=== PATIENT | female | born 1940 | race Caucasian/White ===

== ENCOUNTER 2018-10-22 13:46 | Observation (INO) | payer MEDICARE ==
[~2018-10-22] VITALS: Ht 147.3 cm; Wt 46.7 kg
[2018-10-22] MEDS ORDERED: ASPIRIN 81 MG CHEW TAB PO ONE (14:00)
[2018-10-22 14:43] LABS: BASOPHILS % 0.2 % (0.0-1.0); EOSINOPHILS % 0.3 % (0.0-6.0); HEMATOCRIT 38.2 % (34.2-44.1); HEMOGLOBIN 13.6 g/dL (12.0-16.0); LYMPHOCYTES # (AUTO) 2.5 (1.0-3.2); LYMPHOCYTES % 25.5 % (18.0-39.1); MEAN CORPUSCULAR HEMOGLOBIN 30.5 pg (28-32); MEAN CORPUSCULAR HGB CONC 35.6 g/dL (31-35); MEAN CORPUSCULAR VOLUME 85.7 fL (81-99); MONOCYTES # (AUTO) 0.6 (0.2-0.8); MONOCYTES % 5.8 % (4.4-11.3); NEUTROPHILS # (AUTO) 6.6 (2.1-6.9); NEUTROPHILS % 67.5 % (38.7-80.0); PLATELET COUNT 295 x10e3/uL (140-360); RED BLOOD COUNT 4.46 x10e6/uL (3.6-5.1); RED CELL DISTRIBUTION WIDTH 12.4 % (11.7-14.4)
[2018-10-22 14:51] LABS: INR 0.95; PROTHROMBIN TIME 13.2 seconds (11.9-14.5)
[2018-10-22 15:00] LABS: CLARITY,URINE SL CLOUDY (CLEAR); COLOR,URINE YELLOW (YELLOW); KETONES,URINE 1+ (NEGATIVE); LEUKOCYTE ESTERASE ,URINE TRACE (NEGATIVE); NITRITE,URINE NEGATIVE (NEGATIVE); PROTEIN,URINE DIPSTICK 1+ (NEGATIVE); URINE UROBILINOGEN 0.2 mg/dL (0.2 - 1)
[2018-10-22 15:01] LABS: BILIRUBIN,URINE 1+ (NEGATIVE)
[2018-10-22 15:02] LABS: ALANINE AMINOTRANSFERASE 83 IU/L (0-55); ALBUMIN 3.3 g/dL (3.5-5.0); ALBUMIN/GLOBULIN RATIO 0.9 (0.8-2.0); ALKALINE PHOSPHATASE 91 IU/L (40-150); ANION GAP 14.4 mmol/L (8-16); BLOOD UREA NITROGEN 24 mg/dL (7-26); BUN/CREATININE RATIO 28 (6-25); CALCIUM 9.9 mg/dL (8.4-10.2); CARBON DIOXIDE 26 mmol/L (22-29); CHLORIDE 98 mmol/L (98-107); CREATINE KINASE 23 IU/L (29-168); CREATININE, SERUM 0.87 mg/dL (0.57-1.11); EST GLOMERULAR FILTRATION RATE > 60 ML/MIN (60-); GLUCOSE 185 mg/dL (74-118); MAGNESIUM 1.4 MG/DL (1.3-2.1); POTASSIUM 3.4 mmol/L (3.5-5.1); SODIUM 135 mmol/L (136-145)
--- NOTE | 2018-10-22 15:14 | Diagnostic Imaging Report ---
Examination: Single AP view of the chest. COMPARISON: None. INDICATION: Chest pain DISCUSSION: Lines/tubes: None. Lungs: The lungs are well inflated and clear. No pneumonia or pulmonary edema. Pleura: No pleural effusion or pneumothorax. Heart and mediastinum: The heart and the mediastinum are unremarkable. Bones and soft tissues: No acute bony abnormalities. IMPRESSION: 1. No acute cardiopulmonary abnormalities. Signed by: Dr. Howard Johnson M.D. on 10/22/2018 3:11 PM
[2018-10-22 15:23] LABS: BACTERIA,URINE FEW /HPF; EPITHELIAL CELLS,URINE MODERATE /LPF
[2018-10-22] MEDS ORDERED: ONDANSETRON HCL INJ 2MG/ML 2ML 2 MG/ML VIAL IV PRN (17:45)
[2018-10-22] MEDS ORDERED: NITROGLYCERIN 0.4 MG SUBL SL PRN (17:45)
[2018-10-22] MEDS ORDERED: ENOXAPARIN SOD INJ 60 MG/0.6 ML SYR SC NR (17:45)
--- OUTSIDE RECORDS SUMMARY | 2018-10-22 17:49 | XMS REPORT ---
Author Author [facility] Address Unknown Phone Unavailable Care Team Providers Care Unit Tender Name Role Phone Syl MCCURDY Unavailable Unavailable Peyman SORTO Unavailable Unavailable KATHRYN BRUMFIELD Unavailable Unavailable Problems This patient has no known problems. Allergies, Adverse Reactions, Alerts This patient has no known allergies or adverse reactions. Medications This patient has no known medications. Results Test Description Test Time Test Comments Text Results Atomic Results Result Comments CHEST SINGLE (PORTABLE) 2018-10-22 15:10:00 [facility] [address] [place] [address] Patient Name: DELMER ALAS MR #: [id number] : 1940 Age/Sex: 78/F Req #: [id number] Adm Physician: Ordered by: IFEANYI SALEH FUNDRAISER Report #: [id number] Location: ER Room/Bed: Procedure: [id number] DX/CHEST SINGLE (PORTABLE) Exam Date: 10/22/18 Exam Time: 1430 REPORT STATUS: Signed Examination: Single AP view of the chest. C OMPARISON: None. INDICATION: Chest pain DISCUSSION: Lines/tubes: None. Lungs: The lungs are well inflated and clear. No pneumonia or pulmonary edema. Pleura: No pleural effusion or pneumothorax. Heart and mediastinum: The heart and the mediastinum are unremarkable. Bones and soft tissues: No acute bony abnormalities. IMPRESSION: 1. No acute cardiopulmonary abnormalities. Signed by: Dr. Debbie Concepcion M.D. on 10/22/2018 3:11 PM Dictated By: DEBBIE CONCEPCION MD 10 Transcribed By: SARITA on 10/22/181510 COPY TO: IFEANYI SALEH NP CT HIP LEFT WO [place] [address] Patient Name: PRIETO DOWELL MR #: [id number] : 1940 Age/Sex: 77/F Req #: [id number] Adm Physician: Ordered by: ADELIA SORTO MD Report #: [id number] Location: ER Room/Bed: Procedure: [id number] CT/CT HIP LEFT WO Exam Date: 10/25/17 Exam Time: 2243 REPORT STATUS: Signed TECHNIQUE: Computed tomography imaging of the LEFT HIP was performed WITHOUT injected contrast. HISTORY: Pain, evaluate for occult fracture COMPARISON: None available. FINDINGS: No displaced fracture. Mi ld left hip degenerative arthrosis with calcium pyrophosphate deposition within the left hip and pubic symphysis. Calcification within the left hamstring origin. Vascular calcifications. The bladder is distended. IMPRESSION: No displaced left hip fracture. Calcium pyrophosphate deposition within the left hip Signed by: Dr. Debbie Concepcion M.D. on 10/26/2017 7:07 AM Dictated By: DEBBIE CONCEPCION MD 6 Transcribed By: SARITA on 10/26/17706 COPY TO: ADELIA SORTO MD HIP LEFT 2-3 VW (+/- PELVIS) [facility] [place] [address] Patient Name: PRIETO DOWELL MR #: [id number] : 1940 Age/Sex: 77/F Req #: [id number] Adm Physician: Ordered by: ADELIA SORTO MD Report #: [id number] Location: ER Room/Bed: Procedure: [id number] DX/HIP LEFT 2-3 VW (+/- PELVIS) Exam Date: Exam Time: REPORT STATUS: Signed HIP LEFT 2-3 VW (+/- PELVIS) HISTORY: Hip pain. COMPARISON: MRI of the pelvis on 08/13/2017 FINDINGS: Bones: No displaced fracture. Postsurgical repair of intertrochanteric fracture with intramedullary flor and interlocking screw on the right hip Osseous alignment is within normal limits. Joints: Mild degenerative change of the symphysis pubis and left hip joint. Degenerative changes of the lower lumbar spine. Soft tissues: The soft tissues appear unremarkable. IMPRESSION: No acute osseous abnormality. Signed by: Dr. Yan Alarcon M.D. on 10/25/2017 9:37 PM Dictated By: YAN CALIX MD 36 Transcribed By: SARITA on 10/25/172136 COPY TO: ADELIA SORTO MD [facility] (PORTABLE) [place] [address] Patient Name: PRIETO DOWELL MR #: [id number] : 1940 Age/Sex: 77/F Req #: [id number] Adm Physician: KATHRYN BRUMFIELD Ordered by: KATHRYN BRUMFIELD MD, MD Report #: [id number] Location: MED/SURG Room/Bed: 106-1 Procedure: [id number] DX/CHEST SINGLE (PORTABLE) Exam Date: 08/21/17 Exam Time: 1130 REPORT STATUS: Signed PROCEDURE: A single AP view of the chest. COMPARISON: [facility], DX, CHEST SINGLE (PORTABLE), 08/13/2017, 20:22. INDICATIONS: WHEEZING FINDINGS: Lines/tubes: None. Lungs: Lungs are well-inflated. Mild bibasilar atelectatic changes. No definite consolidation. Mild perihilar interstitial opacities and peribronchial cuffing Pleura: There is no pleural effusion or pneumothorax. Heart and mediastinum: Cardiac silhouette is unremarkable. Mild central pulmonary venous congestion Bones: No acute bony abnormality. IMPRESSION: 1. mild perihilar interstitial opacities and peribronchial cuffing and central vascular venous congestion. This may reflect reactive airway disease versus viral infection. No definite consolidation. Iván Ruiz M.D. Dictated by: Iván Ruiz M.D. on 08/21/2017 at 12:00 Electronically approved by: Iván Ruiz M.D. on 08/21/2017 at 12:00 Dictated By: IVÁN RUIZ MD 1200 Transcribed By: SHAWANDA on 08/21/17 1200 COPY TO: KATHRYN ENNIS PELVIS AP 1-2 VIEWS [place] [address] Patient Name: PRIETO DOWELL MR #: [id number] : 1940 Age/Sex: 77/F Req #: [id number] Adm Physician: KATHRYN BRUMFIELD Ordered by: TANVI BARBOSA MD Report #: [id number] Location: MED/SURG Room/Bed: 106-1 Procedure: [id number] DX/PELVIS AP 1-2 VIEWS Exam Date: 08/18/17 Exam Time: 1215 REPORT STATUS: Signed HIP RIGHT ONE VW (+/- PELVIS), PELVIS AP 1-2 VIEWS HISTORY: Closed, postop COMPARISON: Hip and pelvic MRI 08/13/2017 FINDINGS: See impression. IMPRESSION: Postsurgical changes related to placement of a right femoral intramedullary flor without radiographically apparent complications. Signed by: DR. Lon Katz MD on 08/18/2017 12:56 PM Dictated By: LON KATZ MD 1256 Transcribed By: SARITA on 08/18/17 1256 COPY TO: TANVI BARBOSA MD HIP RIGHT ONE VW (+/- PELVIS) [place] [address] Patient Name: PRIETO DOWELL MR #: [id number] : 1940 Age/Sex: 77/F Req #: [id number] Adm Physician: KATHRYN BRUMFIELD Ordered by: TANVI BARBOSA MD Report #: [id number] Location: MED/SURG Room/Bed: 106 Procedure: DX/HIP RIGHT ONE VW (+/- PELVIS) Exam Date: Exam Time: REPORT STATUS: Signed HIP RIGHT ONE VW (+/- PELVIS), PELVIS AP 1-2 VIEWS HISTORY: Closed, postop COMPARISON: Hip and pelvic MRI 08/13/2017 FINDINGS: See impression. IMPRESSION: Postsurgical changes related to placement of a right femoral intramedullary flor without radiographically apparent complications. Signed by: DR. Lon Katz MD on 08/18/2017 12:56 PM Dictated By: LON KATZ MD 1256 Transcribed By: SARITA on 08/18/17 1256 COPY TO: TANVI BARBOSA MD CHEST SINGLE (PORTABLE) [place] [address] Patient Name: PRIETO DOWELL MR #: [id number] : 1940 Age/Sex: 77/F Req #: [id number] Adm Physician: Ordered by: TIFFANIE BREWER NP Report #: [id number] Location: ER Room/Bed: Procedure: [id number] DX/CHEST SINGLE (PORTABLE) Exam Date: Exam Time: REPORT STATUS: Signed Examination: Single AP view of the chest. COMPARISON: None. INDICATION: Preoperative evaluation DISCUSSION: Lines/tubes: None. Lungs: The lungs are well inflated and clear. No pneumonia or pulmonary edema. Pleura: There is no pleural effusion or pneumothorax. Heart and mediastinum: The heart and the mediastinum are unremarkable. Bones and soft tissues: No acute bony abnormalities. IMPRESSION: 1. No acute cardiopulmonary abnormalities. Signed by: Dr. Debbie Concepcion M.D. on 08/13/2017 8:43 PM Dictated By: DEBBIE CONCEPCION MD 42 Transcribed By: SARITA on 08/13/172042 COPY TO: TIFFANIE BREWER FUNDRAISER MRI PELVIS WO [place] [address] Patient Name: PRIETO DOWELL MR #: [id number] : 1940 Age/Sex: 77/F Req #: [id number] Adm Physician: Ordered by: TIFFANIE BREWER NP Report #: [id number] Location: ER Room/Bed: Procedure: [id number] MRI/MRI PELVIS WO Exam Date: Exam Time: REPORT STATUS: Signed TECHNIQUE: Magnetic resonance imaging of the pelvis and right hip was performed WITHOUT injected contrast using standard departmental protocols. HISTORY: Right hip pain COMPARISON: None. FINDINGS: Bone and bone marrow: Nondisplaced fracture of the intertrochanteric region of the right femur. No other fracture. Articular cartilage: Partial thickness cartilage loss. Soft tissues: Iliopsoas tendons intact. Mild proximal branching origin tendinosis. Gluteal tendon insertions are intact. Soft tissue edema adjacent to the right proximal femur. IMPRESSION: Nondisplaced right intertrochanteric femur fracture. Signed by: Dr. Debbie Concepcion M.D. on 08/13/2017 6:33 PM Dictated By: DEBBIE CONCEPCION MD 32 Transcribed By: SARITA on 08/13/171832 COPY TO: TIFFANIE BREWER NP MRI HIP RIGHT WO [facility] [address] [place] [address] Patient Name: PRIETO DOWELL MR #: [id number] : 1940 Age/Sex: 77/F Req #: [id number] Adm Physician: Ordered by: TIFFANIE BREWER NP Report #: [id number] Location: ER Room/Bed: Procedure: [id number] MRI/MRI HIP RIGHT WO Exam Date: Exam Time: REPORT STATUS: Signed TECHNIQUE: Magnetic resonance imaging of the pelvis and right hip was performed WITHOUT injected contrast using standard departmental protocols. HISTORY: Right hip pain COMPARISON: None. FINDINGS: Bone and bone marrow: Nondisplaced fracture of the intertrochanteric region of the right femur. No other fracture. Articular cartilage: Partial thickness cartilage loss. Soft tissues: Iliopsoas tendons intact. Mild proximal branching origin tendinosis. Gluteal tendon insertions are intact. Soft tissue edema adjacent to the right proximal femur. IMPRESSION: Nondisplaced right intertrochanteric femur fracture. Signed by: Dr. Debbie Concepcion M.D. on 08/13/2017 6:33 PM Dictated By: DEBBIE CONCEPCION MD 32 Transcribed By: SARITA on 08/13/171832 COPY TO: TIFFANIE BREWER NP CT BRAIN WO [facility] [address] [place] [address] Patient Name: PRIETO DOWELL #: [id number] : 1940 Age/Sex: 77/F Req #: [id number] Adm Physician: Ordered by: TIFFANIE BREWER NP Report #: [id number] Location: Room/Bed: Procedure: [id number] CT/CT BRAIN WO Exam Date: Exam Time: REPORT STATUS: Signed EXAMINATION: Head CT HISTORY: Status post fall, trauma, pain COMPARISON: Head CT from 03/19/2014 TECHNIQUE: Multidetector axial images were obtained without contrast from the foramen magnum to the vertex . The images were reconstructed using brain and bone algorithms. Thin section brain images were reformatted into coronal and sagittal planes. Motion/streaking artifact limits the evaluation of the skull base and posterior cranial fossa. FINDINGS: Parenchyma: 1. Persistent mild chronic microvascular ischemic changes. Otherwise no abnormal density in the brain parenchyma. 2. No mass or hemorrhage. No CT evidence of acute territorial vascular insult. Extra-axial spaces:No abnormal density. No extra-axial fluid collections Brain volume: Normal for age. Ventricles: No hydroc ephalus or displacement. Arteries: No density suggestive of thrombus. Dural sinuses: No abnormal density. Extra-axial spaces: No abnormal density. Foramen magnum: No mass, Chiari malformation, or basilar invagination. Sella: No obvious mass. Paranasal/mastoid sinuses: Imaged portions unremarkable. Skull/Scalp: No lytic or blastic lesions. No fractures. IMPRESSION: 1. No acute post traumatic intracranial abnormalities, particularly no hemorrhage. 2. Unchanged mild chronic microvascular ischemic changes. Signed by: Dr. Jessy Moncada M.D. on 08/13/2017 3:20 PM Dictated By: JESSY MONCADA MD 1520 Transcribed By: SARITA on 08/13/17 1520 COPY TO: TIFFANIE BREWER FUNDRAISER HIP RIGHT 2-3 VW (+/- PELVIS) [place] [address] Patient Name: PRIETO DOWELL MR #: [id number] : 1940 Age/Sex: 77/F Req #: [id number] Adm Physician: Ordered by: TIFFANIE BREWER FUNDRAISER Report #: [id number] Location: ER Room/Bed: Procedure: [id number] DX/HIP RIGHT 2-3 VW (+/- PELVIS) Exam Date: Exam Time: REPORT STATUS: Signed PROCEDURE: HIP RIGHT 2-3 VW (+/- PELVIS) COMPARISON: To priors. INDICATIONS: FALL, RIGHT HIP AND LEG PAIN FINDINGS: BONES: No evidence of fracture or dislocation. Mild degenerative changes are present. The adjacent pubic rami appear intact. There is no diastases the pubic symphysis and sacroiliac joints. The left hip is intact with mild degenerative changes. There are moderate changes of the lower lumbar spine superimposed on dextroscoliosis. SOFT TISSUES: There are calcifications in the soft tissues and in the vascular structures. OTHER: Negative. CONCLUSION: No evidence of fracture or dislocation by x- ray. If there is persistent clinical concern, limited CT of the bony pelvis performed for further characterization. Dictated by: Dillon Deleon M.D. on 08/13/2017 at 16:27 Electronically approved by: Dillon Deleon M.D. on 08/13/2017 at 16:27 Dictated By: DILLON DELEON MD 26 Transcribed By: SHAWANDA on 08/13/171626 COPY TO: TIFFANIE BREWER NP FEMUR TWO VIEW MINIMUM RIGHT [place] [address] Patient Name: PRIETO DOWELL MR #: [id number] : 1940 Age/Sex: 77/F Req #: [id number] Adm Physician: Ordered by: TIFFANIE BREWER NP Report #: [id number] Location: ER Room/Bed: Procedure: [id number] DX/FEMUR TWO VIEW MINIMUM RIGHT Exam Date: Exam Time: REPORT STATUS: Signed PROCEDURE: FEMUR TWO VIEW MINIMUM RIGHT COMPARISON: Hip x- rays performed at the same time INDICATIONS: FALL, RIGHT HIP AND LEG PAIN FINDINGS: There are mild degenerative changes of the right hip. The femur is intact and normally mineralized without focal osseous lesions. A traction enthesophyte arises from the greater trochanter. There are degenerative changes of the knee. Visualized bones of the pelvis are intact. There calcifications in the soft tissues and in the vascular structures. CONCLUSION: No evidence of fracture or dislocation. Degenerative changes as described above. Dictated by: Dillon Deleon M.D. on 08/13/2017 at 16:29 Electronically approved by: Dillon Deleon M.D. on 08/13/2017 at 16:29 Dictated By: GLENIS DELEON MD 28 Transcribed By: SHAWANDA on 08/13/171628 COPY TO: TIFFANIE BREWER NP
--- NOTE | 2018-10-22 19:02 | NUR ---
Got report from previous nurse. Call light within reach. patient in bed.
[2018-10-22 20:00] VITALS: BP 153/77
--- NOTE | 2018-10-22 20:00 | NUR ---
called and talked to Dr. Booker about patient being in room 179. Dr. Booker ordered an ECHO to be done tomorrow.
[2018-10-22 20:37] VITALS: BP 153/77
[2018-10-23 00:10] VITALS: BP 140/67
[2018-10-23 01:02] LABS: CREATINE KINASE 21 IU/L (29-168)
[2018-10-23 04:00] VITALS: BP 133/80
[2018-10-23 06:08] LABS: CHOL/HDL RATIO 2.7 (3.0-3.6)
[2018-10-23 07:03] LABS: CREATINE KINASE MB 1.4 ng/mL (0-5.0)
--- NOTE | 2018-10-23 07:13 | NUR ---
Walking rounds done. Patient is awake and alertx3 in NAD. She currently denies any CP or SOB. Tele #15, ST@102. POC discussed. Patient instructed to call for assistance and verbalized understanding. Call plummer within reach.
--- NOTE | 2018-10-23 07:15 | NUR ---
Gave report to oncoming nurse. Call light within reach. Patient in bed.
[2018-10-23 08:00] VITALS: BP 133/74
[2018-10-23] MEDS: INSULIN LISPRO 100 UNIT/1 ML 3ML VIAL SQ SCH ×4 (09:00→22:10)
[2018-10-23] MEDS ORDERED: DEXTROSE 50% SYRINGE 50 ML IV PRN (09:00)
[2018-10-23] MEDS ORDERED: POTASSIUM CHLORIDE 20 MEQ TAB CR PO NR (09:00)
[2018-10-23] MEDS: ASPIRIN 325 MG TAB EC PO SCH (09:04)
[2018-10-23] MEDS: METOPROLOL TARTRATE 25 MG TAB PO SCH ×2 (09:04→16:56)
[2018-10-23] MEDS ORDERED: REGADENOSON 0.4 MG/5 ML SYR IV ONE (11:12)
[2018-10-23] MEDS ORDERED: ONDANSETRON HCL 4 MG ORAL DISINTEGRATING TAB PO PRN (11:45)
[2018-10-23 12:15] VITALS: BP 105/66
--- NOTE | 2018-10-23 12:55 | Consultation ---
DATE OF CONSULTATION: 10/22/2018 REASON FOR CONSULTATION: Chest pain. CONSULTING PHYSICIAN: Dr. Diane Ferguson. HISTORY OF PRESENT ILLNESS: This is a pleasant 78-year-old female, who presented with chest pain. According to the patient, for the last one week, she started having left-sided chest pain that felt like tight pressure on a scale of 7/10 pain that radiated down to her stomach. She stated that the pain has been going on off and on that she decided to come into the emergency room for further evaluation. She had a history of CAD with six cardiac stents in the past and she had not had any stress test recently. She also stated last week she was getting out of the doctor's office, she tripped and she fell sustaining a bruise to her face and jaw. She denied any palpitation, any shortness of breath, any diaphoresis, any headache, nausea, or vomiting. Troponin x3 was negative. EKG showed normal sinus rhythm with no ST abnormalities. BNP 64.9. PAST MEDICAL HISTORY: hypertension, diabetes, hyperlipidemia, arthritis, hypothyroidism, CAD with stents. PAST SURGICAL HISTORY: Right hip surgery, right foot surgery, and cardiac catheterization with PCI. FAMILY HISTORY: Noncontributory. SOCIAL HISTORY: No smoking. No drinking. She lives at home with the daughter. MEDICATIONS: See chart. ALLERGIES: SHE IS NOT ALLERGIC TO ANY MEDICATION. REVIEW OF SYSTEMS: Negative except those mentioned above. She is positive for chest pain. PHYSICAL EXAMINATION: VITAL SIGNS: Temperature 97.5, heart rate 94, blood pressure 133/80, respirations 18, oxygen saturation 99% on 2 L nasal cannula. GENERAL: She is awake, alert, and oriented x3. HEENT: Mucous membranes are moist. NECK: Supple. LUNGS: Bilateral clear to auscultation. CARDIOVASCULAR: S1, S2 present. ABDOMEN: Soft. NEUROLOGICAL: Intact. EXTREMITIES: With no edema. LABS: Sodium 135, potassium 3.4, chloride 98, CO2 of 26, BUN 24, creatinine 0.87, glucose 185. White blood cell 9.71, hemoglobin 13.6, hematocrit 38.2, platelets 295. PT 13.2, PTT 20.0, INR 0.95. IMPRESSION: 1. Chest pain. 2. Coronary artery disease with stents. 3. Hypertension. 4. Diabetes. 5. Hyperlipidemia. 6. Status post fall last week. PLAN: 1. Troponin x3 was negative. 2. We will get an echocardiogram to assess the LV and the valve function. 3. We will check lipid panel and TSH. 4. Potassium is low and has been replaced. 5. Due to history of CAD and multiple stents in the past and no recent cardiac stress test, we will go ahead and set her up for Lexiscan Myoview to rule out any occlusion. Risk and benefit explained to her and she agreed. Further cardiac workup pending clinical course. Thank you for this consultation. Dictated by Milind Smith, PREVENTIVE MEDICINE OFFICER MD KIM Medina/MODPeyman /[id number]
--- NOTE | 2018-10-23 13:10 | NUR ---
Patient returned from stress test. Tele replaced. Call plummer within reach.
[2018-10-23 13:55] LABS: CREATINE KINASE MB 1.9 ng/mL (0-5.0)
[2018-10-23] MEDS ORDERED: METOPROLOL TART25 MG PO (14:43)
[2018-10-23] MEDS ORDERED: LEVOTHYROXINE100 MC1 PO (14:43)
[2018-10-23] MEDS ORDERED: KLONOPIN0.5 MG PO (14:43)
[2018-10-23] MEDS ORDERED: TEMAZEPAM15 MG PO (14:43)
[2018-10-23] MEDS ORDERED: PLAVIX75 MG PO (14:43)
[2018-10-23] MEDS ORDERED: OMEPRAZOLE20 MG PO (14:43)
[2018-10-23] MEDS ORDERED: LIPITOR20 MG PO (14:43)
[2018-10-23] MEDS ORDERED: NORCO 5-325 TA1 EACH PO (14:43)
[2018-10-23 16:00] VITALS: BP 112/68
[2018-10-23] MEDS ORDERED: HYDROCODONE/APAP 5MG-325MG TAB PO PRN (16:15)
--- NOTE | 2018-10-23 17:52 | NUR ---
Dr. Colunga making rounds.
--- NOTE | 2018-10-23 19:02 | NUR ---
Got report from previous nurse. Call light within reach. patient asleep in bed.
[2018-10-23 20:20] VITALS: BP 112/60
[2018-10-23] MEDS ORDERED: ATORVASTATIN 40 MG TAB PO SCH (21:00)
[2018-10-23] MEDS ORDERED: TEMAZEPAM 15 MG CAP PO SCH (21:00)
[2018-10-23] MEDS ORDERED: ATORVASTATIN 20 MG TAB PO SCH (21:00)
[2018-10-24 00:30] VITALS: BP 127/79
--- NOTE | 2018-10-24 01:13 | History and Physical ---
CHIEF COMPLAINT: Chest pain. HISTORY OF PRESENT ILLNESS: A 78-year-old female patient with history of diabetes mellitus, diabetic neuropathy, coronary artery disease, history of coronary stent in the past, esophageal stricture, status post dilatation, Rosenthal's esophagus, admitted with chest pain, left anterior chest continuous pain maximum of 8/10. The patient received emergent care with a morphine, oxygen, aspirin, and seen by talent acquisition partner. She had a stress test report pending. She also has some tenderness to the chest wall. PAST MEDICAL HISTORY: Hypertension, diabetes, hyperlipidemia, esophageal strictures, neuropathy, and GERD. PERSONAL HISTORY: No history of smoking or alcohol. MEDICATIONS: Insulin, [place] and gabapentin. PHYSICAL EXAMINATION: VITAL SIGNS: Blood pressure 118/70, pulse of 82. HEENT: Normal. NECK: No JVD. LUNGS: Bilateral normal. ABDOMEN: Soft. Bowel sounds normal. LOWER EXTREMITIES: No edema. SKIN: Normal. LABORATORY DATA: Potassium low, replaced. ASSESSMENT: Chest pain in a cardiac patient, rule out myocardial infarction and history of gastroesophageal reflux disease. PLAN: Will resume the home medications. Cardiology consultation. Followup stress report and telemetry. MD KENNY Merchant/KEARA /[id number]
[2018-10-24 04:00] VITALS: BP 107/61
[2018-10-24 05:14] VITALS: BP 107/61
[2018-10-24] MEDS ORDERED: LEVOTHYROXINE SODIUM 75 MCG TAB PO SCH (06:00)
[2018-10-24 06:50] VITALS: BP 120/59
--- NOTE | 2018-10-24 06:58 | NUR ---
Gave report to oncoming nurse. Call light within reach. Patient in bed.
[2018-10-24] MEDS: INSULIN LISPRO 100 UNIT/1 ML 3ML VIAL SQ SCH (07:30)
[2018-10-24] MEDS: ASPIRIN 325 MG TAB EC PO SCH (08:46)
[2018-10-24] MEDS: METOPROLOL TARTRATE 25 MG TAB PO SCH (08:47)
[2018-10-24] MEDS ORDERED: PANTOPRAZOLE SOD 40 MG TABEC PO SCH (09:00)
[2018-10-24] MEDS ORDERED: CLOPIDOGREL BISULFATE 75 MG TAB PO SCH (09:00)
[2018-10-24] MEDS ORDERED: CLONAZEPAM 0.5 MG TAB PO SCH (09:00)
--- NOTE | 2018-10-24 10:49 | NUR ---
SOCIAL WORK INITIAL ASSESSMENT Pig Casting Machine Operator to bedside to discuss plan of care with patient/family. CM/SW role and care transitions discussed. Anticipated discharge plan discussed along with duration of care. CM/SW discussed patients right to make decisions in care. CM/SW work hours given. Patient lives: IN HOUSE WITH DAUGHTER Admit/Transfer: VIA ED POA/Emergency contact: DAUGHTER ROJELIO [phone] Current/Previous Home Health: NONE PCP/Follow-up Care: CATHY Current/Previous DME: [employer] [facility] Other Services: NONE Employment Status: RETIRED Areas of Concerns: NONE Referral Needs: NONE Education Needs: NONE IMM/TORREZ given and signed (if applicable): UPON ADMISSION Goal for discharge:RETURN HOME INDEPENDENTLY CM/SW left business card at the bedside with contact information. Name and number was also written on the patients whiteboard. Patient verbalized understanding of discussion. CM will follow-up with ongoing discharge and transition of care needs.
[2018-10-24 11:30] VITALS: BP 120/58
--- NOTE | 2018-10-25 02:01 | Discharge Summary ---
HOSPITAL COURSE: A 78-year-old female patient admitted with a chest pain. She has previous history of coronary artery disease with stent placement, seen by grease rack worker and a stress test was normal and EF was normal. She will be discharged home. She also has mild dysphagia from chronic esophageal strictures. She follows with Dr. Fernandez and advised to follow up with Dr. Fernandez as outpatient for evaluation of chronic recurrent esophageal strictures. DISCHARGE DIAGNOSES: Chest pain, coronary artery disease, angina, diabetes, and hypertension. DISCHARGE MEDICATIONS: Reconciled. DIET: Diabetic diet. ACTIVITY: As tolerated. MD KENNY Merchant/KEARA /[id number]
--- NOTE | 2018-10-25 17:35 | Myoview Stress Test ---
DATE OF STUDY: 10/23/2018 08:41:00 Stress Test - Treadmill ONLY Lexiscan stress test report INDICATION: Chest pain. DESCRIPTION OF PROCEDURE: After informed consent, the patient was brought to the stress lab. She was given 11 mCi of technetium-99m Myoview and myocardial perfusion SPECT image obtained in the horizontal long and short axis and vertical long axis views. Subsequently, the patient was given 0.4 mg Lexiscan over 10 seconds. The patient was given 32 mCi of technetium-99m Myoview intravenously and myocardial perfusion SPECT images obtained in the horizontal long and short axis and vertical long axis views. Gated images were also obtained. The patient tolerated the procedure without any complication. REPORT: Baseline EKG shows sinus rhythm at 84 beats per minute. Normal axis. Normal intervals. T-wave inversion, I, aVL, V1 and V2. PARAMETERS: 1. Resting heart rate 85 beats per minute. 2. Maximum heart rate is 108 beats per minute. 3. Resting blood pressure 113/55 mmHg. 4. Maximum blood pressure 140/69 mmHg. REASON FOR TERMINATION: End point attained. INTERPRETATION: 1. Negative chest pain. 2. Negative for arrhythmias. 3. Blood pressure response consistent with Lexiscan. 4. No significant ST-T changes seen during Lexiscan infusion compared to baseline. 5. Analysis SPECT images revealed uniform radioisotope uptake in all segments of myocardium without any significant perfusion defects. CONCLUSIONS: 1. No evidence of significant ischemia or infarction on the study. 2. No wall motion abnormalities. 3. Overall ejection fraction is 79%. MD ROSS Medina/MODL /[id number]
== END 2018-10-24 13:03 | disposition home or self-care (01) ==
LOC: ER 13:46 → ERHOLD 17:47 → IMCU 18:49
PROVIDERS: ADMIT Internal Medicine; ATTEND Internal Medicine
DX: I25.110 Atherosclerotic heart disease of native coronary artery with unstable angina pectoris (principal); I10 Essential (primary) hypertension; E78.5 Hyperlipidemia, unspecified; Z95.5 Presence of coronary angioplasty implant and graft; E11.9 Type 2 diabetes mellitus without complications; W19.XXXA Unspecified fall, initial encounter; K22.2 Esophageal obstruction; R13.10 Dysphagia, unspecified
CPT/HCPCS: 36415 ×2; 71045; 78452; 80053; 80061; 81001; 82550 ×2; 82553 ×2; 82948 ×3; 83735; 83880; 84484 ×2; 85025; 85610; 85730; 87086; 87400; 93005; 93017; 93306; 96372; 99285; A9502; G0378 ×3; J1650; J2785; S0164